=== PATIENT | female | born 1955 | race Caucasian/White ===

== ENCOUNTER 2016-10-03 15:17 | Emergency (ER) | payer MEDICAID, OTHER ==
[~2016-10-03] VITALS: Ht 154.9 cm; Wt 80.3 kg
[~2016-10-03 15:17] MED LIST: HYDR25TA4 PO; NIFEDICAL XL PO; TRAM50TA2 PO
[2016-10-03] MEDS ORDERED: cloNIDine HCL 0.1 MG TAB ONE (15:28)
[2016-10-03] MEDS ORDERED: cloNIDine HCL 0.1 MG TAB PO ONE (15:35)
[2016-10-03 15:41] VITALS: BP 187/132
[2016-10-03 16:17] LABS: Basophils # (auto) 0.1 uL; Basophils % (auto) 2.2 % (0.0-2.0); Eosinophils # (auto) 0.1 uL; Eosinophils % (auto) 2.2 % (0.0-7.0); Hematocrit 43.2 % (36.0-46.0); Hemoglobin 14.6 g/dL (12.2-16.2); Lymphocytes # (auto) 2.9 uL; Lymphocytes % (auto) 42.3 % (10.0-50.0); Mean Corpuscular Hemoglobin 29.8 pg (28.0-32.0); Mean Corpuscular Hgb Conc. 33.7 g/dL (32.0-36.0); Mean Corpuscular Volume 88.3 fL (80.0-100.0); Mean Platelet Volume 9.5 fL (7.4-10.4); Monocytes # (auto) 0.5 uL; Monocytes % (auto) 6.8 % (0.0-12.0); Neutrophils # (auto) 3.1 uL; Neutrophils % (auto) 46.5 % (37.0-80.0); Platelet Count (auto) 299 10^3/uL (140-450); Red Cell Distribution Width 13.7 % (11.6-16.0); White Blood Cell 6.8 10^3/uL (4.4-10.8)
[2016-10-03 16:41] LABS: Albumin 3.8 g/dL (3.4-5.0); Alkaline Phosphatase 74 U/L (45-117); Anion Gap 9 (5-15); Aspartate Aminotransferase 17 U/L (15-37); BUN/Creatinine Ratio 37.7; Bilirubin, Total 0.3 mg/dL (0.2-1.0); Blood Urea Nitrogen 23 mg/dL (7-18); Calcium 9.5 mg/dL (8.5-10.1); Carbon Dioxide 25 mmol/L (21-32); Chloride 105 mmol/L (98-107); GFR African American 129 mL/min; GFR Non-African American 106 mL/min; Glucose 90 mg/dL (74-106); Potassium 3.3 mmol/L (3.5-5.1); Sodium 139 mmol/L (136-145)
== END 2016-10-03 21:35 | disposition left against medical advice (07) ==
LOC: ER 15:17
DX: M25.531 Pain in right wrist (principal); R55 Syncope and collapse; M25.562 Pain in left knee; R07.81 Pleurodynia; Z88.2 Allergy status to sulfonamides; Z53.21 Procedure and treatment not carried out due to patient leaving prior to being seen by health care provider
CPT/HCPCS: 36415; 71020; 73110; 80053; 84484; 85025; 93005